=== PATIENT | female | born 1990 | race Caucasian/White ===

== ENCOUNTER 2017-03-01 10:35 | Inpatient (IN) | payer OTHER, MEDICAID ==
[2017-03-01] VITALS (13 sets, daily range): BP systolic 106–123; BP diastolic 60–79; PULSE 58–86; RESP 16–20; TEMP 98.2–98.6; O2SAT 99–100
[~2017-03-01] VITALS: Ht 175.3 cm; Wt 73.8 kg
[2017-03-01] MEDS ORDERED: SODIUM CHLORIDE 0.9% FLUSH 10 ML FLUSH IVF PRN (11:15)
[2017-03-01] MEDS ORDERED: SODIUM CHLOR 0.9% 1000 ML INJ 1,000 ML IV ONE (11:15)
[2017-03-01 11:35] LABS: AUTOMATED NEUTROPHIL # 8.4 TH/MM3 (1.8-7.7); BASOPHIL % 0.2 % (0.0-2.0); EOSINOPHIL # 0.2 TH/MM3 (0-0.4); EOSINOPHIL % 2.1 % (0.0-4.0); HEMATOCRIT 36.5 % (35.0-46.0); HEMO FLAGS DIFF FINAL; LYMPH % 14.5 % (9.0-44.0); LYMPHOCYTE # 1.6 TH/MM3 (1.0-4.8); MEAN CELL VOLUME 91.3 FL (80.0-100.0); MEAN CORPUSCULAR HEMOGLOBIN 30.1 PG (27.0-34.0); MONO % 5.7 % (0.0-8.0); NEUT % 77.5 % (16.0-70.0); PLATELET COUNT 239 TH/MM3 (150-450); RED CELL DISTRIBUTION WIDTH 13.3 % (11.6-17.2); WHITE BLOOD COUNT 10.8 TH/MM3 (4.0-11.0)
[2017-03-01 11:45] LABS: APTT (PATIENT) 22.7 SEC (24.3-30.1); PROTHROMBIN TIME - PATIENT 10.7 SEC (9.8-11.6)
[2017-03-01] MEDS ORDERED: ONDANSETRON HCL 4 MG/2 ML VIAL IV ONE (11:45)
[2017-03-01] MEDS ORDERED: MORPHINE SULFATE 4 MG/ML INJ IV PUSH ONE (11:45)
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
[2017-03-01 11:53] LABS: I-STAT POTASSIUM 3.8 MMOL/L (3.5-4.9)
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
[2017-03-01] MEDS ORDERED: IOHEXOL 350 MG/ML 10 ML VIAL (for RAD DIAG) IV ONE (13:00)
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
[2017-03-01] MEDS ORDERED: SODIUM CHLORIDE 0.9% FLUSH 10 ML FLUSH IV FLUSH PRN (13:30)
[2017-03-01] MEDS ORDERED: ONDANSETRON HCL 4 MG/2 ML VIAL IV PRN (13:30)
[2017-03-01] MEDS ORDERED: MISCELLANEOUS NURSING INFORMATION XX SCH (13:30)
[2017-03-01] MEDS ORDERED: CHLORHEXIDINE GLUCONATE 2 % 1 PACK (2 CLOTHS) TOP PRN (13:30)
[2017-03-01] MEDS ORDERED: MAGNESIUM HYDROXIDE SUSP 30 ML CUP PO PRN (13:30)
[2017-03-01] MEDS ORDERED: HYDROmorphone HCL PF 1 MG/ML VIAL IVS ONE (13:45)
[2017-03-01] MEDS ORDERED: ENOXAPARIN SODIUM 30 MG/0.3 ML SYRINGE SQ SCH (15:00)
[2017-03-01] MEDS: BACITRACIN TOP OINT 15 GM TUBE TOP SCH ×2 (16:41→21:31)
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
[2017-03-01] MEDS: HYDROmorphone HCL PF 1 MG/ML VIAL IVP PRN ×2 (18:26→21:30)
[2017-03-01] MEDS: DOCUSATE SODIUM 100 MG CAP PO SCH (21:33)
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
[2017-03-02] VITALS (11 sets, daily range): BP systolic 102–135; BP diastolic 60–76; PULSE 72–84; RESP 11–17; TEMP 98–98.7; O2SAT 95–99
[2017-03-02] MEDS: HYDROmorphone HCL PF 1 MG/ML VIAL IVP PRN ×5 (00:17→22:15)
[2017-03-02] MEDS: CHLORHEXIDINE GLUCONATE 2 % 1 PACK (2 CLOTHS) TOP SCH (04:22)
[2017-03-02 04:36] LABS: AUTOMATED NEUTROPHIL # 5.1 TH/MM3 (1.8-7.7); BASOPHIL % 0.2 % (0.0-2.0); EOSINOPHIL # 0.1 TH/MM3 (0-0.4); EOSINOPHIL % 1.2 % (0.0-4.0); HEMATOCRIT 33.6 % (35.0-46.0); HEMO FLAGS DIFF FINAL; MEAN CELL VOLUME 90.9 FL (80.0-100.0); MEAN CORPUSCULAR HEMOGLOBIN 30.3 PG (27.0-34.0); MEAN CORPUSCULAR HGB CONC 33.3 % (32.0-36.0); MONO % 9.9 % (0.0-8.0); NEUT % 73.7 % (16.0-70.0); PLATELET COUNT 165 TH/MM3 (150-450); RED CELL DISTRIBUTION WIDTH 12.8 % (11.6-17.2); WHITE BLOOD COUNT 6.9 TH/MM3 (4.0-11.0)
[2017-03-02 05:01] LABS: BICARBONATE 24.4 MEQ/L (21.0-32.0); POTASSIUM 3.4 MEQ/L (3.5-5.1)
--- NOTE | 2017-03-02 06:22 | RADRPT ---
EXAM DATE/TIME: 03/02/2017 04:41 [place] COMPARISON: CHEST SINGLE AP, March 01, 2017, 11:34. INDICATIONS : Short of breath. MEDICAL HISTORY : None. SURGICAL HISTORY : None. ENCOUNTER: Subsequent ACUITY: 2 days PAIN SCORE: Non-responsive. LOCATION: Bilateral chest FINDINGS: A single view of the chest demonstrates the lungs to be symmetrically aerated without evidence of mas s, infiltrate or effusion. The cardiomediastinal contours are unremarkable. Osseous structures are intact. CONCLUSION: Normal examination. Ash Rice MD on March 02, 2017 at 6:20 Board Certified Radiologist. This report was verified electronically.
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
[2017-03-02] MEDS ORDERED: POTASSIUM CHLORIDE 10 MEQ CONTROLLED RELEASE TAB PO ONE (07:15)
[2017-03-02] MEDS ORDERED: ACETAMINOPHEN 1000 MG/100 ML VIAL IV ONE ×2 (08:04→09:18)
[2017-03-02] MEDS ORDERED: MIDAZOLAM HCL 2 MG/2 ML VIAL ONE ×2 (08:04→11:46)
[2017-03-02] MEDS ORDERED: DEXAMETHASONE SOD PHOS 4 MG/ML VIAL ONE (08:05)
[2017-03-02] MEDS ORDERED: VANCOMYCIN HCL 1000 MG VIAL ONE (08:08)
[2017-03-02] MEDS ORDERED: GENTAMICIN SULFATE 80 MG/2 ML VIAL ONE (08:08)
[2017-03-02] MEDS ORDERED: ceFAZolin INJ 1,000 MG VIAL ONE (08:08)
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
[2017-03-02] MEDS ORDERED: BUPIVACAINE HCL PF 0.5% 30 ML VIAL ONE (09:48)
--- NOTE | 2017-03-02 09:56 | PD.OP ---
cc: Khris Bergman MD Operative Report Date of Surgery: Mar 02, 2017 Preoperative Diagnosis: Comminuted left humerus shaft fracture Postoperative Diagnosis: Procedure: Open reduction internal fixation left humerus Anesthesia: Gen. Surgeon: Khris Bergman Protection Engineer(s): TJ Augustin PA-C The surgical procedure was assisted by my physician offset press assistant. My P.A. presence was necessary throughout this case for the manipulation and positioning of the surgical extremity. My P.A. was assisting me throughout the duration of this procedure. The skill set of a physician offset press assistant was medically necessary to complete this procedure. During the surgical case the medical or surgical instrument maker was working at the back table and the physician offset press assistant was directly assisting me. Operation and Findings: Patient was seen and evaluated preoperatively. Treatment options were discussed regarding humerus fracture including surgical and nonsurgical treatments. After detailed discussion of risk and benefits of procedure patient wishes to proceed with surgery. Risks of surgery include bleeding, infection, nonunion, malunion, painful hardware, loss of motion of shoulder and elbow, weakness and numbness of arm, as well as medical competitions including blood clots stroke and . Patient was brought to operating room and placed on the OR table. GETA was administered by anesthesiologist. Patient was positioned in lateral decubitus position. Extremities were well-padded. Axillary roll was placed. Operative arm and shoulder were prepped with alcohol followed by Hibiclens and draped usual sterile fashion. Timeout procedure was performed. IV antibiotics were given prior to incision. A standard posterior approach was utilized. Subcutaneous tissues was dissected with Bovie. The triceps muscle was split midline and elevated laterally distally. The radial nerve was identified and protected throughout the procedure. The nerve was intact. The fracture was identified. Soft tissue was removed from the fracture site. Fracture site was cleaned with curettes. At this point the fracture was reduced using fracture tenaculums. There was comminution of the fracture. There were 5 large fracture fragments. Each fragment was manually reduced. K wires and fracture tenaculums were used to hold provisional fixation. Additional 2.7 cortical lag screws were used to compress fracture fragments. Multiplanar fluoroscopy confirmed excellent of fracture. A Synthes 3.5 plate was contoured to fit the humerus. Plate was provisionally held the bone with K wires. 3.5 cortical screws were placed on each side of the fracture. The screws were placed to add compression to fracture. Multiple screws were placed in each side of the fracture. Additional locking screws were placed distally. All screws were predrilled and premeasured for appropriate length. Final fluoroscopy revealed excellent alignment of fracture with well-placed hardware. Incision was thoroughly irrigated. Fascia was closed with #1 Vicryl, subcutaneous tissues closed with 3 -0 Vicryl, and skin was closed with david. Sterile dressings were applied. Needle and sponge counts were correct. At this point the case was turned over to Dr. Reis. Patient has multiple fractures and dislocations of her hand which need surgical intervention and will be managed by Dr. Reis. Khris Bergman MD Mar 02, 2017 09:56
[2017-03-02] MEDS ORDERED: MORPHINE SULFATE 4 MG/ML INJ IV PUSH PRN (10:00)
[2017-03-02] MEDS ORDERED: Post-op Orders (for Pharmacy) MISC XX ONE (10:00)
[2017-03-02] MEDS ORDERED: HYDROmorphone HCL PF 2 MG/ML VIAL ONE (10:50)
--- NOTE | 2017-03-02 11:33 | HHI.PR ---
Immediate Post Op Note Procedure Date: Mar 02, 2017 Pre Op Diagnosis: (1) Dislocation of carpometacarpal joint of left hand Post Op Diagnosis: (1) Dislocation of carpometacarpal joint of left hand Surgeon: Lashanda Reis Aquatic Facility Manager(s): None Procedure: Closed reduction and percutaneous fixation of dislocated index, middle, ring and fifth carpometacarpal joints. Anesthesia: General Drains: None Tourniquet time (min at mmHg) None Patient to: PACU Patient Condition: Good Implant/Devices: SEE IMPLANT LOG (if applicable) Date/Time of Procedure: SEE SURGICAL CARE RECORD Lashanda Reis MD Mar 02, 2017 11:33
[2017-03-02] MEDS ORDERED: DO NOT ADM ANY ANTICOAGULANT DRUGS PRN (11:38)
[2017-03-02] MEDS ORDERED: fentaNYL CITRATE 250 MCG/5 ML AMP ONE (11:46)
[2017-03-02] MEDS ORDERED: NEOSTIGMINE 3 MG/3 ML SYR IV ONE (12:00)
[2017-03-02] MEDS ORDERED: PROPOFOL 200 MG/20 ML AMP IV ONE (12:00)
[2017-03-02] MEDS ORDERED: ONDANSETRON HCL 4 MG/2 ML VIAL IV PUSH ONE (12:00)
[2017-03-02] MEDS ORDERED: LACTATED RINGER'S 1000 ML INJ 1,000 ML IV ONE (12:00)
[2017-03-02] MEDS ORDERED: *ONDANSETRON 4 MG VIAL PERIprocedural Use ONLY ONE (12:01)
[2017-03-02] MEDS ORDERED: *morphine SULFATE 8 MG/ML PERIprocedure ONLY ONE (12:01)
--- NOTE | 2017-03-02 12:02 | OTSOAPIP ---
TIME SESSION COMPLETED: AM TREATMENT TIME: 0 MINS. CHART REVIEWED. ATTEMPTED TO SEE FOR OT ASSESSMENT AND PT OFF FLOOR FOR SURGERY. WILL FOLLOW NEXT DAY. Therapist: WENDIE COON OT/Monie Signature on file
[2017-03-02] MEDS: METHOCARBAMOL 500 MG TAB PO SCH ×3 (12:46→22:00)
[2017-03-02] MEDS: BACITRACIN TOP OINT 15 GM TUBE TOP SCH ×2 (13:06→22:23)
[2017-03-02] MEDS: LACTULOSE SYRUP 20 GM/30 ML CUP PO SCH (13:08)
[2017-03-02] MEDS: DOCUSATE SODIUM 100 MG CAP PO SCH ×2 (13:09→22:23)
--- NOTE | 2017-03-02 14:57 | RADRPT ---
EXAM DATE/TIME: 03/02/2017 09:31 [facility] COMPARISON: HUMERUS LEFT (MIN 2VWS), March 01, 2017, 11:36. INDICATIONS : ORIF left humerus. MEDICAL HISTORY : None. SURGICAL HISTORY : None. ENCOUNTER: Subsequent ACUITY: 2 days PAIN SCORE: Non-responsive. LOCATION: Left humerus. FINDINGS: 5 images were recorded digitally in the operating room using C-arm during placement of humeral plate and screws. CONCLUSION: Intraoperative images. Anthony Jaramillo MD on March 02, 2017 at 14:54 Board Certified Radiologist. This report was verified electronically.
[2017-03-02] MEDS: ceFAZolin 2 GM PREMIX 50 ML IV SCH ×2 (15:26→23:20)
--- NOTE | 2017-03-02 16:47 | HHI.CCPN ---
Subjective 24 Hour Review/Hospital Course 03/02/17 Patient scheduled for OR today for hand surgery and repair of her distal humerus fracture We'll maintain her in the ICU postoperatively to monitor her pneumothorax and pain level Pneumothorax currently does not require chest tube placement, we'll obtain a chest x-ray following intubation and positive pressure ventilation Objective Vital Signs Date Time Temp Pulse Resp B/P Pulse Ox O2 Delivery O2 Flow Rate FiO2 03/02/17 14:00 74 03/02/17 12:30 98.5 16 120/80 100 Room Air 03/02/17 12:15 2 Intake and Output 03/01/17 03/01/17 03/02/17 08:00 16:00 00:00 Intake Total 480 ml Balance 480 ml Result Diagram: 03/02/17 0410 03/02/17 0410 Imaging Last 24 hours Impressions Humerus X-Ray 03/02/17 0000 Signed Impressions: Service Date/Time: Thursday, March 02, 2017 09:31 - CONCLUSION: Intraoperative images. Anthony Jaramillo MD Chest X-Ray 03/02/17 0000 Signed Impressions: Service Date/Time: Thursday, March 02, 2017 04:41 - CONCLUSION: Normal examination. Ash Rice MD Exam JOCKEY'S AGENT Alert oriented in no acute distress Hemodynamic/Cardiac Regular rate and rhythm, stable Pulmonary/Respiratory Clear to auscultation bilaterally Abdomen/GI Nutrition Soft, nontender, nondistended, currently nothing by mouth for surgery Renal/I&O Stable Hematologic Stable Assessment and Plan Plan OR today with orthopedic surgery and hand Postoperative chest x-ray to monitor her pneumothorax PT OT evaluation and treatment Discharge planning for possible discharge tomorrow if her pain is controlled and she is cleared by physical therapy Jose A Liang MD Mar 02, 2017 16:47
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
[2017-03-03] VITALS (7 sets, daily range): BP systolic 103–117; BP diastolic 64–72; PULSE 70–98; RESP 12–20; TEMP 97.7–98.8; O2SAT 98–100
[2017-03-03] MEDS: HYDROmorphone HCL PF 1 MG/ML VIAL IVP PRN ×3 (01:18→09:29)
[2017-03-03] MEDS: CHLORHEXIDINE GLUCONATE 2 % 1 PACK (2 CLOTHS) TOP SCH (03:09)
[2017-03-03] MEDS: METHOCARBAMOL 500 MG TAB PO SCH ×2 (06:00→13:00)
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
[2017-03-03] MEDS ORDERED: HYDR-3583 PO (07:20)
[2017-03-03] MEDS: ACETAMINOPHEN/HYDROcodone 325 MG/10 MG TAB PO PRN ×3 (07:24→13:01)
[2017-03-03] MEDS: BACITRACIN TOP OINT 15 GM TUBE TOP SCH (09:00)
[2017-03-03] MEDS: DOCUSATE SODIUM 100 MG CAP PO SCH (09:00)
[2017-03-03] MEDS: LACTULOSE SYRUP 20 GM/30 ML CUP PO SCH (09:00)
--- NOTE | 2017-03-03 09:48 | RADRPT ---
EXAM DATE/TIME: 03/03/2017 09:20 [facility] COMPARISON: HUMERUS LEFT (MIN 2VWS), March 02, 2017, 9:31. INDICATIONS : Evaluate for pneumothorax. MEDICAL HISTORY : Comminuted distal humerus shaft fracture. SURGICAL HISTORY : Orif left humerus. ENCOUNTER: Subsequent ACUITY: 3 days PAIN SCORE: 10/10 LOCATION: Bilateral chest FINDINGS: A single view of the chest demonstrates the lungs to be symmetrically aerated without evidence of mas s, infiltrate or effusion. The cardiomediastinal contours are unremarkable. Osseous structures demo nstrate postsurgical changes in the left humerus. CONCLUSION: 1. No acute cardiopulmonary findings. 2. Postsurgical changes in the left humerus. Sj Adams MD on March 03, 2017 at 9:46 Board Certified Radiologist. This report was verified electronically.
[2017-03-03] MEDS ORDERED: ENOXAPARIN SODIUM 30 MG/0.3 ML SYRINGE SQ SCH (10:00)
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
== END 2017-03-03 14:08 | disposition home or self-care (01) | DRG 493 ==
LOC: NEPE 10:35 → NEDA 13:28 → N03B 15:38
PROVIDERS: ADMIT Surgery; ATTEND Surgery
PROC: 0RS Upper Joints, Reposition (ICD-10-PCS; 2017-03-02)
PROC: 0RS Upper Joints, Reposition (ICD-10-PCS; 2017-03-02)
PROC: 0RS Upper Joints, Reposition (ICD-10-PCS; 2017-03-02)
PROC: 3E0T3BZ Introduction of Anesthetic Agent into Peripheral Nerves and Plexi, Percutaneous Approach (ICD-10-PCS; 2017-03-02)
PROC: 3E0T3BZ Introduction of Anesthetic Agent into Peripheral Nerves and Plexi, Percutaneous Approach (ICD-10-PCS; 2017-03-02)
PROC: 0RS Upper Joints, Reposition (ICD-10-PCS; 2017-03-02 08:04)
PROC: 0PSG04Z Reposition Left Humeral Shaft with Internal Fixation Device, Open Approach (ICD-10-PCS; principal; 2017-03-03)
DX: S42.402A Unspecified fracture of lower end of left humerus, initial encounter for closed fracture (principal); S27.0XXA Traumatic pneumothorax, initial encounter; S22.018A Other fracture of first thoracic vertebra, initial encounter for closed fracture; S27.321A Contusion of lung, unilateral, initial encounter; S62.142A Displaced fracture of body of hamate [unciform] bone, left wrist, initial encounter for closed fracture; S63.055A Dislocation of other carpometacarpal joint of left hand, initial encounter; S62.317A Displaced fracture of base of fifth metacarpal bone, left hand, initial encounter for closed fracture; V48.5XXA Car driver injured in noncollision transport accident in traffic accident, initial encounter; Y92.410 Unspecified street and highway as the place of occurrence of the external cause; Y93.89 Activity, other specified; Y99.9 Unspecified external cause status; Z72.0 Tobacco use; M25.511 Pain in right shoulder
CPT/HCPCS: 70450; 71010; 71260; 72125; 72170; 73060; 73110; 73200; 74177; 76000; 80048; 82435; 82565; 82947; 84132; 84295; 84520; 84703; 85025; 85610; 85730; 86850; 86900; 86901; 87641; 94150; 96374; 96375; C1713; J0131; J0690; J1100; J1170; J1580; J1650; J2250; J2270; J2405; J2710; J3010; J3370; J7030; J7120; Q9967